=== PATIENT | female | born 1955 | race Caucasian/White ===

== ENCOUNTER → 2020-01-12 12:21 | Outpatient (CLI) | payer BC, SELFPAY ==
--- NOTE | ~2020-01-12 | DEXA_ITS ---
Bone Density Report Name: Estrella Carr Age: 64 Sex: Female Ethnicity: White Date of : 1955 Indication: postmenopausal; screening for osteoporosis; height loss; asthma or emphysema; Referring Provider: MYRNA DRAKE Study: Bone densitometry was performed. Exam Date: January 12, 2020 Accession number: [id number] Bone Density: Region BMD T-score Z-score Classification AP Spine (L1-L4) 0.944 -0.9 0.7 Normal Femoral Neck (Left) 0.605 -2.2 -0.8 Osteopenia Total Hip (Left) 0.844 -0.8 0.3 Normal Femoral Neck (Right) 0.655 -1.7 -0.3 Osteopenia Total Hip (Right) 0.836 -0.9 0.3 Normal Total Hip Mean 0.840 -0.9 0.3 Normal World Health Organization criteria for BMD impression classify patients as: Normal (T-score at or above -1.0), Osteopenia (T-score between -1.0 and -2.5), or Osteoporosis (T-score at or below -2.5). 10-year Fracture Risk(1): Major Osteoporotic Fracture 10% Hip Fracture 1.5% Reported Risk Factors: [place] (), Neck BMD=0.605, BMI=33.3 (1) FRAX(R) Version 3.08. Fracture probability calculated for an untreated patient. Fracture probability may be lower if the patient has received treatment. Clinical Information Provided by Patient: Has used the following medications: Vitamin D, Calcium, MTV, LEVOTHYROXIN Has the following medical conditions: Asthma or Emphysema Patient maximum height was 64 Menopause Age: 55 No regular weight bearing exercise Drinks caffeinated beverages Onset of menses at age 15 Number of children 2 Impression: The patient has low bone mass, based on the Left Femoral Neck T-score. The patient has an estimated ten-year risk of hip fracture of 1.5% and an estimated ten-year risk of major fracture of 10%, based on the WHO FRAX algorithm. Discussion: BONE DENSITY IS LOW AT ONE OR MORE SKELETAL SITES. This patient's lowest T-score is low at one or more skeletal sites. It meets the World Health Organization's (WHO) criteria for ?low bone mass? (T-score between -1.0 and -2.5). The patient's 10-year risk of fracture as calculated by FRAX is less than the threshold where pharmacological therapy is recommended by the National Osteoporosis Foundation (NOF). However, all treatment decisions require clinical judgment and consideration of individual patient factors, including patient preferences, comorbidities, previous drug use, risk factors not captured in the FRAX model (e.g., frailty, falls, vitamin D deficiency, increased bone turnover, interval significant decline in bone density) and possible under or overestimation of fracture risk by FRAX. The patient should follow a healthful lifestyle (good nutrition with adequate calcium and vitamin D, and appropriate weight-bearing exercise). Follow-Up: Consider repeating this study in 2 to 3 years to reasse
== END ==
PROVIDERS: PCP Internal Medicine; Visit Provider Obstetrics & Gynecology
DX: Z78.0 Asymptomatic menopausal state (principal); M85.89 Other specified disorders of bone density and structure, multiple sites
CPT/HCPCS: 77080

== ENCOUNTER 2020-12-17 15:30 | Outpatient (RCR) | payer BC, SELFPAY ==
--- NOTE | 2020-11-17 09:49 | PTOPEVAL ---
INITIAL PHYSICAL THERAPY EVALUATION and PLAN OF CARE Thank you for referring Estrella Carr to [facility].? Daksha is scheduled to be seen for physical therapy? 2x/week for 4 weeks. Please review, sign, date and return this plan of care MARY. I agree with and certify that the following plan of care is medically necessary. Referring Physician Date Admitting Provider: Attending Provider: Trav Leonard, MD Referring Provider: *PT Outpatient Evaluation Start: 11/17/20 08:29 Freq: Status: Active Protocol: Document 11/17/20 08:25 ANNIE (Rec: 11/17/20 09:46 ANNIE [id number]) Therapy Assessment Status Assessment Status Assessment Status Evaluation Outpatient Past Medical History Past Medical History Source of Past Medical History Patient Cardiovascular History Hx Hypertension Yes Respiratory History Hx Asthma Yes Hx Other Respiratory Disorders Yes: seasonal allergies Musculoskeletal History Hx Arthritis Yes Endocrine History Hx Hypothyroidism Yes HEENT History Hx Ear Surgery Yes: bilateral cochlear implants Evaluation Information Problem Diagnosis Pain R buttock/piriformis syndrome Onset exacerbation 10/2020 Subjective Information Estrella reports that ~ 10 yrs Query Text:As Reported By Patient/ ago was carrying tub/basket Family away from body - felt pull/ discomfort R SIJ/buttock region. Since then will reaggravate this area with certain body movements - usually when bending over, reaching away from midline. Latest episode was with heading cone sandhu and using weed eater. Was working out prior to COVID onset - did get treadmill - trying to stay active. [place] better with resistive hip adduction/ abduction machines. Takes Xantax and Zyrtec prior to sleep - so sleeps well. If hurting - will take a while to find comfortable position. Stiffness in mornings - improves with movement. Prior Level of Function Activity Level (Last 3 Months) Occupation mostly computer work now - will get up and move around Hand Dominance
--- NOTE | 2020-12-06 14:50 | PCPTNOTE ---
Patient called & cancelled scheduled appointment this date due to inability to leave work. Also cancelling 12/08/2020 appointment due to a .
--- NOTE | 2020-12-17 16:36 | PTOPEVAL ---
PHYSICAL THERAPY DISCHARGE SUMMARY Thank you for referring Estrella Carr to [facility].? Daksha has been seen x 6 visits. She has done well - goals have been met and she is independent with her HEP. She is ready for d/c from PT. I agree with Daksha's discharge from PT. Referring Physician Date Admitting Provider: Attending Provider: Daksha Pryor PA-C Referring Provider: Therapy Assessment Status Assessment Status Assessment Status Discharge Evaluation Information Problem Diagnosis Pain R buttock/piriformis syndrome Subjective Information Daksha reports not having the R Query Text:As Reported By Patient/ buttock pain upon waking up Family now - but does have some lumbar pain. Usually will have some soreness day after PT - then it goes away. Will have some discomfort the longer she walks. Doing well with work activities - but that is mainly sitting. Household activities - vacuuming can produce a little discomfort. Mowing is okay now, but will feel some discomfort with weed eating. Pain Assessment Timing of Pain Assessment Timing of Pain Assessment Assessment Pain Scale Pain Scale Used Numeric (1 - 10) Self Report Pain Assessment Lower Back Reported Pain Level 1 Lowest Pain Intensity 0 Greatest Pain Intensity 2 Cervical and Lumbar ROM Lumbar ROM Lumbar Flexion (0-90) 55 Query Text:Active in Degrees Lumbar Extension (0-40) 20 Query Text:Active in Degrees Lumbar Lateral Flexion Right (0-40) 15 Query Text:Active in Degrees Lumbar Lateral Flexion Left (0-40) 15 Query Text:Active in Degrees Lumbar Comments R sided lateral side tightness present with L side bending Muscle Length Testing Muscle Length Testing Muscle Length Testing Comments prone lying - symmetrical piriformis length Palpation Assessment Palpation Palpation P-A glides - to R sacral base, L5-2 some tenderness initially - mild decrease with mobility mid muscle belly R piriformis tenderness - no increase in tissue tension lumbar paraspinal tissue tension - no tenderness PT Clinical Summary Clinical Summary
== END 2021-02-04 10:12 | disposition home or self-care (01) ==
LOC: ANHHIPT 15:30
PROVIDERS: PCP Internal Medicine; Visit Provider Internal Medicine
DX: G57.00 Lesion of sciatic nerve, unspecified lower limb (principal); M79.18 Myalgia, other site
CPT/HCPCS: 97014; 97110; 97140; 97162; G0283

== ENCOUNTER 2022-02-22 00:26 | Day surgery (SDC) | payer MEDICARE, OTHER, SELFPAY ==
[2022-02-08 10:43] VITALS: BMI 32.5
--- NOTE | 2022-02-08 11:03 | PC.NURSE ---
Report to the Outpatient Waiting Room, entrance under the green pavilion located off [facility], at time __7:15AM on date ___02/22/22____. Planned Procedure Time: ___9:15AM . Time changes happen often and if your time is changed the preop area will call you the afternoon before. - You and your visitor will be asked to self-screen and do not enter if you have any COVID symptoms. - Only one visitor is requested with a max of two and NO children visitors are allowed at this time. - The patient visitor may be requested to leave or wait in car when not with patient due to distancing restrictions. - A mask is optional within the hospital. Patients may have clear liquids (water, carbonated beverages, clear teas, apple juice) until 3 hours prior to surgery with a maximum of 20 ounces. - No food from midnight until time of surgery. Take the following medications with a SIP of water the morning of surgery: __SYMBICORT, ALPRAZOLAM, AMLODIPINE, LEVOTHYROXINE, ALBUTEROL NEBULIZERS NEEDED,, FLONASE NEEDED Medications to discontinue per physician ____HOLD ALL VITAMINS/SUPPLEMENTS 3 DAYS PRE-OP Date to take last dose___02/18/22 Please no make-up, nail dominican, hairspray, perfume, deodorant, or body powder the day of surgery. No jewelry (including any body piercings) or valuables the day of surgery, leave them at home. Please take a shower or bath the night before, or the morning of, surgery with an antibacterial soap. Wear comfortable, loose fitting clothing. Children are encouraged to wear pajamas. - Jewelry must be removed prior to entering the operating room. Rings and piercings that are not removed may be cut off. - The hospital will not accept responsibility for valuables. - Please leave all valuables, including medications, at home the day of surgery. If you are going home after surgery, a licensed lunch truck driver must drive you home. - NO public transportation without another adult if you receive anesthesia. - We recommend that an adult stay with you for 24 hours following discharge. - We also recommend that you do not drive, make important decision, drink alcoholic beverages, or take any drugs that were not prescribed by your health care provider for at least 24 hours after your discharge time. Follow any additional instructions given to you from your surgeon. If you or anyone in your household have experienced Covid symptoms in the past week, please notify your surgeon or the nurse liaison at the phone number below for possible testing. Telephone instructions given to __PATIENT and asked if any additional questions and then verbalized understanding. Patient advised to call surgeon office or pre surgery nurse liaison [phone] if any additional questions.
--- NOTE | 2022-02-21 21:34 | PM.IMHP ---
H&P: HPI History of Present Illness Date/Time: 02/21/22 21:34 Chief Complaint: Abnormal ultrasound finding Narrative: Patient scheduled for D and C hysteroscopy and removal of lesion if present due to a finding of a thickened endometrial stripe of 2cm on an ultrasound that was done in January as a screening test prior to starting supplements. She denies vaginal bleeding. She had an office endometrial biopsy whidh was benign. She was recommended for direct visualization due to the thickness of the lining. Discussed possible etiologies to include scar tissue. Review of Systems Review of Systems: All systems reviewed & are unremarkable except as noted in HPI and below Constitutional: Constitutional: Reports no additional constitutional complaints Eyes: Eyes: Reports no additional eye complaints Cardiovascular: Cardiovascular: Reports no additional cardiovascular complaints Respiratory: Respiratory: Reports no additional respiratory complaints Gastrointestinal: Gastrointestinal: Reports no additional gastrointestinal complaints Genitourinary: Genitourinary: Reports no additional female genitourinary complaints and Reports as per HPI Integumentary/Breasts: Skin/Breast: Reports system reviewed and no additional complaints, except as docu Neurologic: Reports system reviewed and no additional complaints, except as documented Psychiatric: Psychiatric: Reports no additional psychiatric complaints Hematologic/Lymphatic: Hematologic/Lymphatic: Reports no additional hematologic/lymphatic complaints PMFSH Past Medical History Medical History [place] (actinic keratosis) Allergies Annual physical exam Anxiety Asthma Cochlear implant in place Encounter for screening for malignant neoplasm of rectum (07/19/15) Fatigue Hypertension Hypothyroidism Seasonal allergies Thyroid disorder Surgical History Surgical History History of dilatation and curettage Family History Family History Father Family history of mental disorder Hypertension Cerebrovascular accident Carcinoma of colon, Onset Age: 79 Patient's father is Mother Family history of malignant neoplasm of thyroid Family history of congestive heart failure Hypertension Social History Social History Smoking status: Never smoker Alcohol intake: never Substance use: never Substance use type: does not use Additional living arrangements comments: SPOUSE Gender identity (if verbalized by the patient): Female Sexual Orientation (if Verbalized by the Patient): Straight or Heterosexual Spiritual care concerns: No Meds Home Medications and Allergies Home Medications Medication Instructions Recorded Confirmed Type albuterol sulfate 5 mg/mL(0.5 %) 2.5 mg inhalation Q6H PRN Dyspnea 12/09/19 02/08/22 History solution for nebulization budesonide-formoterol HFA 80 2 puff inhalation BID 12/09/19 02/08/22 History mcg-4.5 mcg/actuation aerosol inhaler (Symbicort) montelukast 10 mg tablet 10 mg PO HS 12/09/19 02/08/22 History (Singulair) furosemide 20 mg tablet (Lasix) 20 mg PO QAM PRN edema #10 tabs 11/16/21 02/08/22 Rx cholecalciferol (vitamin D3) 50 50 mcg PO DAILY 11/24/21 02/08/22 History mcg (2,000 unit) capsule ipratropium 0.5 mg-albuterol 3 mg 3 ml inhalation Q6H PRN Dyspnea 11/24/21 02/08/22 History (2.5 mg base)/3 mL nebulization soln multivitamin 1 tablet PO DAILY 11/24/21 02/08/22 History amoxicillin 875 mg tablet 875 mg PO Q12H #20 tabs 01/31/22 02/08/22 Rx alprazolam 0.5 mg tablet,extended 0.5 mg PO BID #60 tabs 02/06/22 02/08/22 Rx release 24 hr albuterol sulfate 90 mcg/actuation 2 puff inhalation Q4-6H PRN Dyspnea 02/08/22 02/08/22 History aerosol inhaler amlodipine 5 mg
[2022-02-22 06:35] VITALS: BP 136/68; PULSE 77; RESP 16; TEMP 36.2; O2SAT 98
[2022-02-22] MEDS: ACETAMINOPHEN 500 MG TABLET 1000 MG PO (06:50)
[2022-02-22] MEDS: LACTATED RINGERS 1,000 ML 30 ML IV CONT (06:57)
--- NOTE | 2022-02-22 07:27 | WPDHPUPDATE1 ---
History and Physical Update Update Date/Time: 02/22/22 07:27 History and Physical has been reviewed, including an updated exam of the patient. There are NO changes in the patient's condition. Risks, benefits, and alternatives have been discussed and questions answered. Patient agrees to proceed with procedure.
--- NOTE | 2022-02-22 07:50 | WPDANESEPPF ---
Anes - Initial Pre Proc Eval Procedure: Operation Date: 02/22/22 08:30 Proposed Procedures p Hysteroscopy, Dilation and Curettage with Aveta, Possible Biopsy - Eyal Alberto MD Date/Time: 02/22/22 07:50 Surgeon: Eyal Alberto MD Pre Op Diagnosis: thickened endometrial stripe Patient Data Age: 66 Gender: F Height: 1.63 m Weight: 83.85 kg Last Vital Signs Temp 36.2 C L 02/22/22 06:35 Pulse 77 02/22/22 06:35 Resp 16 02/22/22 06:35 BP 136/68 02/22/22 06:35 Pulse Ox 98 02/22/22 06:35 O2 Del Method Room Air 02/22/22 06:35 Allergies Allergy/AdvReac Type Severity Reaction Status Date / Time cefdinir [From Omnicef] AdvReac Intermediate Diarrhea Verified 02/22/22 07:05 bupropion [From Wellbutrin] AdvReac Mild Fatigued Verified 02/22/22 07:05 buspirone [From BuSpar] AdvReac Mild Flushing Verified 02/22/22 07:05 escitalopram [From Lexapro] AdvReac Mild Fatigued Verified 02/22/22 07:05 Home Medications Medication Instructions Recorded Confirmed Type albuterol sulfate 5 mg/mL(0.5 %) 2.5 mg inhalation Q6H PRN Dyspnea 12/09/19 02/08/22 History solution for nebulization budesonide-formoterol HFA 80 2 puff inhalation BID 12/09/19 02/08/22 History mcg-4.5 mcg/actuation aerosol inhaler (Symbicort) montelukast 10 mg tablet 10 mg PO HS 12/09/19 02/08/22 History (Singulair) furosemide 20 mg tablet (Lasix) 20 mg PO QAM PRN edema #10 tabs 11/16/21 02/08/22 Rx cholecalciferol (vitamin D3) 50 50 mcg PO DAILY 11/24/21 02/08/22 History mcg (2,000 unit) capsule ipratropium 0.5 mg-albuterol 3 mg 3 ml inhalation Q6H PRN Dyspnea 11/24/21 02/08/22 History (2.5 mg base)/3 mL nebulization soln multivitamin 1 tablet PO DAILY 11/24/21 02/08/22 History amoxicillin 875 mg tablet 875 mg PO Q12H #20 tabs 01/31/22 02/08/22 Rx alprazolam 0.5 mg tablet,extended 0.5 mg PO BID #60 tabs 02/06/22 02/08/22 Rx release 24 hr albuterol sulfate 90 mcg/actuation 2 puff inhalation Q4-6H PRN Dyspnea 02/08/22 02/08/22 History aerosol inhaler amlodipine 5 mg tablet 5 mg PO QAM 02/08/22 02/08/22 History fluticasone propionate 50 2 spray intranasal BID PRN 02/08/22 02/08/22 History mcg/actuation nasal Congestion spray,suspension krill oil 500 mg capsule 1,000 mg PO DAILY 02/08/22 02/08/22 History levothyroxine 75 mcg tablet 75 mcg PO QAM 02/08/22 02/08/22 History losartan 100 mg tablet 100 mg PO QAM 02/08/22 02/08/22 History omega 6-pcr-qxf-fish oil 1,000 mg 1 cap PO DAILY 02/08/22 02/08/22 History (120 mg-180 mg) capsule (Fish Oil) Patient hx anesthesia problems: none Family hx anesthesia problems: none Results Review: All pre-operative results and documents have been reviewed as part of the pre-operative evaluation. [facility] Past Medical History Medical History [place] (actinic keratosis) Allergies Annual physical exam Anxiety Asthma Cochlear implant in place Encounter for screening for malignant neoplasm of rectum (07/19/15) Fatigue Hypertension Hypothyroidism Seasonal allergies Thyroid disorder Surgical History Surgical History History of dilatation and curettage Family History Family History Father Family history of mental disorder Hypertension Cerebrovascular accident Carcinoma of colon, Onset Age: 79 Patient's father is Mother Family history of malignant neoplasm of thyroid Family history of congestive heart failure Hypertension Social History Social History Smoking status: Never smoker Alcohol intake: never Substance use: never Substance use type: does not use Living arrangements: with family Additional living arrangements comments: SPOUSE Gender identity (if verbalized by the patient): Female Sexual Orientatio
[2022-02-22] MEDS: ceFAZolin 2 GM/D5W 50 ML 2 GM/50 ML BAG IVPB (08:20)
[2022-02-22] MEDS: LIDOCAINE HCL 1% PF 30 ML VIAL INFILTRATE (08:31)
[2022-02-22 08:46] VITALS: BP 113/70; PULSE 75; RESP 15; O2SAT 98
--- NOTE | 2022-02-22 09:10 | PM.OP ---
Procedure Note - Brief Procedure Note - Brief Date of procedure: 02/22/22 Pre-op diagnosis: thickened endometrial stripe Post-op diagnosis: Same Procedure performed: Diagnostic hysteroscopy and dilation and currettage Anesthesia: MAC and local Surgeon: Eyal Alberto MD Estimated blood loss (mL): 5 Drains: No Packing: No Pathology: Yes (scant endometrial currettings) Complications: No immediate complications Condition: Stable Disposition: Same day
[2022-02-22 09:15] VITALS: BP 128/64; PULSE 75; RESP 14
[2022-02-22 09:45] VITALS: BP 123/62; PULSE 77; RESP 14
--- NOTE | 2022-02-22 12:46 | W.PM.PROC2 ---
Procedure Note - Detailed Date of Procedure 02/22/22 Pre-op Diagnosis thickened endometrial stripe Post-op Diagnosis Same Procedure Performed Diagnostic hysteroscopy and dilation and currettage Surgeon Eyal Alberto MD Anesthesia MAC and Local Indications Abnormally thickened endometrial stripe on ultrasound Findings Uterus sound to 6cm, uterine cavity atrophic, no lesion, minimal tissue obtained on currettage Description of Procedure After informed consent was obtained she was taken to the operating room and adequate IV sedation was administered. She was placed in low lithotomy position and prepped and draped in sterile fashion. Attention was turned to the vagina speculum was inserted. Single-tooth tenaculum placed on the anterior lip of the cervix. 10 cc of 1% lidocaine plain was injected at the cervical vaginal interface. the cervix was dilated to an 6 hagen dilator. The uterus was sounded to 7 cm. The cervix was further hydro dilated with the of eat a hysteroscope instrument. The cavity was visualized there were no abnormalities noted the cavity was atrophic. The hysteroscope was removed a curettage was performed with minimal tissue as expected obtained. The tenaculum was removed hemostasis was noted . Speculum was removed. Patient tolerated procedure well. Sponge count correct. Estimated Blood Loss 5 Drains No Packing No Pathology Yes ( Scant endometrial curetting) Complications No immediate complications Condition Stable Disposition Same day [facility] Billing Surgery - Charge Forward: Surgery Billing
== END 2022-02-22 10:05 | disposition home or self-care (01) ==
PROVIDERS: PCP Family Medicine; Visit Provider Obstetrics & Gynecology
PROC: 0U5B8ZZ Destruction of Endometrium, Via Natural or Artificial Opening Endoscopic (ICD-10-PCS; CPT 58563; principal; 2022-02-22 08:30)
DX: N85.8 Other specified noninflammatory disorders of uterus (principal); J45.909 Unspecified asthma, uncomplicated; I10 Essential (primary) hypertension; E03.9 Hypothyroidism, unspecified; F41.9 Anxiety disorder, unspecified; E66.9 Obesity, unspecified; Z68.31 Body mass index [BMI] 31.0-31.9, adult; Z79.51 Long term (current) use of inhaled steroids
CPT/HCPCS: 58558; 88305; A9270; J0690; J2250; J2405; J2704; J3010; J7120

== ENCOUNTER 2022-05-01 00:27 | Day surgery (SDC) | payer MEDICARE, OTHER, SELFPAY ==
[2022-04-14 14:10] VITALS: BMI 29.5
[2022-05-01 06:54] VITALS: BP 146/72; PULSE 75; RESP 16; TEMP 36.3; O2SAT 99; BMI 30.9
[2022-05-01] MEDS: LACTATED RINGERS 1,000 ML 150 ML IV CONT (07:04)
--- NOTE | 2022-05-01 07:32 | WPDANESEPPF ---
Anes - Initial Pre Proc Eval Procedure: Operation Date: 05/01/22 08:30 Proposed Procedures p Screening Colonoscopy - Esdras Pina MD Date/Time: 05/01/22 07:32 Surgeon: Esdras Pina MD Pre Op Diagnosis: neoplasm screening Patient Data Age: 66 Gender: F Height: 1.63 m Weight: 81.8 kg Last Vital Signs Temp 97.3 F L 05/01/22 06:54 Pulse 75 05/01/22 06:54 Resp 16 05/01/22 06:54 BP 146/72 H 05/01/22 06:54 Pulse Ox 99 05/01/22 06:54 O2 Del Method Room Air 05/01/22 06:54 Allergies Allergy/AdvReac Type Severity Reaction Status Date / Time cefdinir [From Omnicef] AdvReac Intermediate Diarrhea Verified 05/01/22 06:53 Home Medications Medication Instructions Recorded Confirmed Type albuterol sulfate 5 mg/mL(0.5 %) 2.5 mg inhalation Q6H PRN Dyspnea 12/09/19 05/01/22 History solution for nebulization budesonide-formoterol HFA 80 2 puff inhalation BID 12/09/19 05/01/22 History mcg-4.5 mcg/actuation aerosol inhaler (Symbicort) furosemide 20 mg tablet (Lasix) 20 mg PO QAM PRN edema #10 tabs 11/16/21 05/01/22 Rx cholecalciferol (vitamin D3) 50 50 mcg PO DAILY 11/24/21 05/01/22 History mcg (2,000 unit) capsule ipratropium 0.5 mg-albuterol 3 mg 3 ml inhalation Q6H PRN Dyspnea 11/24/21 05/01/22 History (2.5 mg base)/3 mL nebulization soln multivitamin 1 tablet PO DAILY 11/24/21 05/01/22 History albuterol sulfate 90 mcg/actuation 2 puff inhalation Q4-6H PRN Dyspnea 02/08/22 05/01/22 History aerosol inhaler amlodipine 5 mg tablet 5 mg PO QAM 02/08/22 05/01/22 History fluticasone propionate 50 2 spray intranasal BID PRN 02/08/22 05/01/22 History mcg/actuation nasal Congestion spray,suspension krill oil 500 mg capsule 1,000 mg PO DAILY 02/08/22 05/01/22 History losartan 100 mg tablet 100 mg PO QAM 02/08/22 05/01/22 History alprazolam 0.5 mg tablet 0.5 mg PO QHS #30 tabs 03/08/22 05/01/22 Rx alprazolam 0.5 mg tablet,extended 0.5 mg PO BID #60 tabs 03/08/22 05/01/22 Rx release 24 hr montelukast 10 mg tablet 10 mg PO HS #90 tabs 03/08/22 05/01/22 Rx (Singulair) levothyroxine 75 mcg tablet See Rx Instructions .Route 03/09/22 05/01/22 Rx .COMPLEX #90 tabs Patient hx anesthesia problems: none Family hx anesthesia problems: none Results Review: All pre-operative results and documents have been reviewed as part of the pre-operative evaluation. [facility] Past Medical History Medical History [place] (actinic keratosis) Allergies Annual physical exam Anxiety Asthma Cochlear implant in place Encounter for screening for malignant neoplasm of rectum (07/19/15) Fatigue Hypertension Hypothyroidism Seasonal allergies Thyroid disorder Surgical History Surgical History History of dilatation and curettage Family History Family History Father Family history of mental disorder Hypertension Cerebrovascular accident Carcinoma of colon, Onset Age: 78 Patient's father is Mother Family history of malignant neoplasm of thyroid Family history of congestive heart failure Hypertension Social History Social History Smoking status: Never smoker Alcohol intake: never Substance use: never Substance use type: does not use Living arrangements: with family Additional living arrangements comments: SPOUSE Occupation/Education: occupation Gender identity (if verbalized by the patient): Female Sexual Orientation (if Verbalized by the Patient): Straight or Heterosexual Spiritual care concerns: No Anes - Eval Final PreProcedure Day of Procedure 05/01/22 07:32 Patient weight: normal Heart: regular rate and rhythm Lungs: clear to auscultation Airway: Mallampati scale class II Neurol
--- NOTE | 2022-05-01 07:57 | PM.HPGS ---
History of Present Illness History of Present Illness Consent: Risks, benefits, and alternatives have been discussed and questions answered. Patient agrees to proceed with procedure. Chief complaint: neoplasm screening Narrative: Estrella Carr is a 66 year old female here for screening colonoscopy, last one about 12 years ago Review of Systems Constitutional: Constitutional: Denies headache(s) and Denies weakness Eyes: Eyes: Denies blurry vision ENT: Reports Normal hearing present, Denies headache(s) and Denies neck pain Cardiovascular: Cardiovascular: Denies chest pain and Denies dyspnea Respiratory: Respiratory: Denies dyspnea Gastrointestinal: Gastrointestinal: Reports no additional gastrointestinal complaints Genitourinary: Genitourinary: Denies dysuria Musculoskeletal: Musculoskeletal: Denies neck pain Integumentary/Breasts: Skin/Breast: Denies dry skin Neurologic: Reports Normal hearing present, Denies headache(s) and Denies weakness Psychiatric: Psychiatric: Denies anxiety Endocrine: Endocrine: Denies change in body appearance Hematologic/Lymphatic: Hematologic/Lymphatic: Denies easy bleeding Allergic/Immunologic: Allergic/Immunologic: Denies urticaria PMFSH Past Medical History Medical History (Updated 05/01/22 @ 07:57 by Esdras Pina MD) AK (actinic keratosis) Allergies Annual physical exam Anxiety Asthma Cochlear implant in place Colon cancer screening Encounter for screening for malignant neoplasm of rectum (07/19/15) Fatigue Hypertension Hypothyroidism Seasonal allergies Thyroid disorder Surgical History Surgical History History of dilatation and curettage Family History Family History Father Family history of mental disorder Hypertension Cerebrovascular accident Carcinoma of colon, Onset Age: 79 Patient's father is Mother Family history of malignant neoplasm of thyroid Family history of congestive heart failure Hypertension Social History Social History Smoking status: Never smoker Alcohol intake: never Substance use: never Substance use type: does not use Living arrangements: with family Additional living arrangements comments: [facility] Occupation/Education: occupation Gender identity (if verbalized by the patient): Female Sexual Orientation (if Verbalized by the Patient): Straight or Heterosexual Spiritual care concerns: No Meds Home Medications and Allergies Home Medications Medication Instructions Recorded Confirmed Type albuterol sulfate 5 mg/mL(0.5 %) 2.5 mg inhalation Q6H PRN Dyspnea 12/09/19 05/01/22 History solution for nebulization budesonide-formoterol HFA 80 2 puff inhalation BID 12/09/19 05/01/22 History mcg-4.5 mcg/actuation aerosol inhaler (Symbicort) furosemide 20 mg tablet (Lasix) 20 mg PO QAM PRN edema #10 tabs 11/16/21 05/01/22 Rx cholecalciferol (vitamin D3) 50 50 mcg PO DAILY 11/24/21 05/01/22 History mcg (2,000 unit) capsule ipratropium 0.5 mg-albuterol 3 mg 3 ml inhalation Q6H PRN Dyspnea 11/24/21 05/01/22 History (2.5 mg base)/3 mL nebulization soln multivitamin 1 tablet PO DAILY 11/24/21 05/01/22 History albuterol sulfate 90 mcg/actuation 2 puff inhalation Q4-6H PRN Dyspnea 02/08/22 05/01/22 History aerosol inhaler amlodipine 5 mg tablet 5 mg PO QAM 02/08/22 05/01/22 History fluticasone propionate 50 2 spray intranasal BID PRN 02/08/22 05/01/22 History mcg/actuation nasal Congestion spray,suspension krill oil 500 mg capsule 1,000 mg PO DAILY 02/08/22 05/01/22 History losartan 100 mg tablet 100 mg PO QAM 02/08/22 05/01/22 History alprazolam 0.5 mg tablet 0.5 mg PO QHS #30 tabs 03/08/22 05/01/22 Rx alprazolam 0.5 mg tablet,extended 0.5 mg PO BID #60 tabs 03/08/22 05/01/22 Rx rel
[2022-05-01 08:15] VITALS: BP 129/59; PULSE 80; RESP 16; O2SAT 100
[2022-05-01 08:25] VITALS: BP 120/65; PULSE 60; RESP 20; O2SAT 99
[2022-05-01 08:35] VITALS: BP 142/78; PULSE 58; RESP 20; O2SAT 100
== END 2022-05-01 08:43 | disposition home or self-care (01) ==
PROVIDERS: PCP Family Medicine; Visit Provider Internal Medicine Gastroenterology
PROC: 0DJD8ZZ Inspection of Lower Intestinal Tract, Via Natural or Artificial Opening Endoscopic (ICD-10-PCS; CPT 45378; principal; 2022-05-01 08:30)
DX: Z12.11 Encounter for screening for malignant neoplasm of colon (principal); K57.30 Diverticulosis of large intestine without perforation or abscess without bleeding; K64.8 Other hemorrhoids; J45.909 Unspecified asthma, uncomplicated; F41.9 Anxiety disorder, unspecified; I10 Essential (primary) hypertension; E03.9 Hypothyroidism, unspecified; Z96.21 Cochlear implant status; Z79.51 Long term (current) use of inhaled steroids
CPT/HCPCS: G0121; J2704; J7120

== ENCOUNTER 2022-12-02 09:21 | Emergency (ER) | payer MEDICARE, OTHER, SELFPAY ==
--- NOTE | 2022-12-02 09:27 | ED.URI ---
HPI - URI/Sore Throat General Chief Complaint: Ear Stated Complaint: Earache Time Seen by Provider: 12/02/22 09:30 Source: patient, RN notes reviewed and old records reviewed Mode of arrival: ambulatory Limitations: no limitations History of Present Illness HPI Narrative: 67-year-old female presents to the [facility] with complaints of ear pain and increased sinus pressure. Patient states symptoms started this morning. Has been using inhaler due to her allergies and cough for the last couple of months. States that she does take Flonase and Zyrtec daily. No other treatment prior to arrival Has a history of asthma, allergy is thyroid, hypertension Onset (ago): day(s) (1) Related Data Home Medications Medication Instructions Recorded Confirmed albuterol sulfate 5 mg/mL(0.5 %) 2.5 mg inhalation Q6H PRN Dyspnea 12/09/19 12/02/22 solution for nebulization cholecalciferol (vitamin D3) 50 50 mcg PO DAILY 11/24/21 12/02/22 mcg (2,000 unit) capsule ipratropium 0.5 mg-albuterol 3 mg 3 ml inhalation Q6H PRN Dyspnea 11/24/21 12/02/22 (2.5 mg base)/3 mL nebulization soln multivitamin 1 tablet PO DAILY 11/24/21 12/02/22 albuterol sulfate 90 mcg/actuation 2 puff inhalation Q4-6H PRN Dyspnea 02/08/22 12/02/22 aerosol inhaler fluticasone propionate 50 2 spray intranasal BID PRN 02/08/22 12/02/22 mcg/actuation nasal Congestion spray,suspension krill oil 500 mg capsule 1,000 mg PO DAILY 02/08/22 12/02/22 cyanocobalamin (vitamin B-12) 2,000 mcg PO DAILY 11/01/22 12/02/22 2,000 mcg tablet progesterone micronized 100 mg 100 mg PO QHS 11/14/22 12/02/22 capsule budesonide-formoterol HFA 80 inhalation 12/02/22 12/02/22 mcg-4.5 mcg/actuation aerosol inhaler Allergies Allergy/AdvReac Type Severity Reaction Status Date / Time cefdinir [From Omnicef] AdvReac Intermediate Diarrhea Verified 12/02/22 09:27 Review of Systems Review of Systems: All systems reviewed & are unremarkable except as noted in HPI and below Constitutional: Constitutional: Reports no additional constitutional complaints Eyes: Eyes: Reports no additional eye complaints ENT: Reports as per HPI and Reports otalgia Cardiovascular: Cardiovascular: Reports no additional cardiovascular complaints, Denies chest pain and Denies dyspnea Respiratory: Respiratory: Reports no additional respiratory complaints, Denies chest congestion, Denies cough and Denies dyspnea Gastrointestinal: Gastrointestinal: Reports no additional gastrointestinal complaints, Denies abdominal pain, Denies nausea and Denies vomiting Musculoskeletal: Musculoskeletal: Reports no additional musculoskeletal complaints Integumentary/Breasts: Skin/Breast: Reports system reviewed and no additional complaints, except as docu Neurologic: Reports system reviewed and no additional complaints, except as documented Psychiatric: Psychiatric: Reports no additional psychiatric complaints Allergic/Immunologic: Allergic/Immunologic: Reports no additional allergic/immunologic complaints PMFSH Past Medical History Medical History AK (actinic keratosis) Allergies Annual physical exam Anxiety Asthma Cochlear implant in place Colon cancer screening Encounter for screening for malignant neoplasm of rectum (07/19/15) Fatigue Hypertension Hypothyroidism Seasonal allergies Thyroid disorder Surgical History Surgical History History of dilatation and curettage Family History Family History Father Family history of mental disorder Hypertension Cerebrovascular accident Carcinoma of colon, Onset Age: 79 Patient's father is Mother Family history of malignant neoplasm of thyroid Family history of congestive heart failure Hypertension Social History Social History (Reviewed 12/02/22 @ 18:21 by Chava
[2022-12-02 09:29] VITALS: BP 111/52; PULSE 92; RESP 16; TEMP 37.2; O2SAT 100
[2022-12-02 09:40] VITALS: BP 111/52; PULSE 92; RESP 16; TEMP 37.2; O2SAT 100
== END 2022-12-02 10:09 | disposition home or self-care (01) ==
PROVIDERS: Emergency Provider Nurse Practitioner; PCP Physician Assistant Medical
DX: H92.01 Otalgia, right ear (principal); I10 Essential (primary) hypertension; E03.9 Hypothyroidism, unspecified; J45.909 Unspecified asthma, uncomplicated; Z20.822 Contact with and (suspected) exposure to COVID-19
CPT/HCPCS: 87426; 99213; C9803; G0463

== ENCOUNTER 2024-10-30 02:24 | Day surgery (SDC) | payer MEDICARE, OTHER, SELFPAY ==
[2024-10-23 15:47] VITALS: BMI 25.7
--- NOTE | 2024-10-23 16:06 | PC.NURSE ---
Report to the Outpatient Waiting Room, entrance under the green pavilion located off [facility], at time __7:30AM__ on date __10/30/24__. Planned Procedure Time: __9:30AM_ Time changes happen often and if your time is changed the preop area will call you the afternoon before. - You and your visitor will be asked to self-screen and do not enter if you have any COVID symptoms. Please call surgeon if you need to reschedule. - A mask is optional within the hospital at this time. Patients may have clear liquids (water, carbonated beverages, clear teas, apple juice) until 3 hours prior to surgery (6:30AM) with a maximum of 20 ounces. - No food from midnight until time of surgery and no smoking, or chewing tobacco (or any form of nicotine). No chewing gum, candy or mints. Take only the following medications with a SIP of water on the morning of surgery: ____AMLODIPINE, LEVOTHYROXINE. MAY USE ALBUTEROL INHALER OR NEBULIZER NEEDED DO NOT STOP ANY OF YOUR OTHER PRESCRIPTION MEDICATIONS PRIOR TO SURGERY EXCEPT THE FOLLOWING Hold all vitamins and supplements for 3 days per anesthesiologist.-LAST DOSE 10/26/24 Medications to discontinue per physician NONE Date to take last dose Please no make-up, nail japanese, hairspray, perfume, deodorant, or body powder the day of surgery.? No jewelry (including any body piercings) or valuables the day of surgery, leave them at home.? Please take a shower or bath the night before, or the morning of, surgery with an antibacterial soap.? Wear comfortable, loose fitting clothing.? - Jewelry must be removed prior to entering the operating room.? Rings and piercings that are not removed may be cut off. - The hospital will not accept responsibility for valuables.? - Please leave all valuables, including medications, at home the day of surgery. If you are going home after surgery, a licensed class b driver must drive you home.? - NO public transportation without another adult if you receive anesthesia. - We recommend that an adult stay with you for 24 hours following discharge. - We also recommend that you do not drive, make important decision, drink alcoholic beverages, or take any drugs that were not prescribed by your health care provider for at least 24 hours after your discharge time. Follow any additional instructions given to you from your surgeon. Telephone instructions given to ____PATIENT and asked if any additional questions and then verbalized understanding. Patient advised to call surgeon office or pre surgery nurse liaison [phone] if any additional questions.
--- NOTE | 2024-10-28 12:53 | PM.IMHP ---
H&P: HPI History of Present Illness Date/Time: 10/28/24 12:53 Chief Complaint: Postmenopausal bleeding Narrative: 69-year-old female hormone replacement admitted for hysteroscopy dilatation curettage secondary to thickened endometrial tissue. At complex area within the cervix. Risks and benefits of hysteroscopy dilatation curettage reviewed including not exclusive of , aspiration pneumonia, bleeding, transfusion, perforation injury to bowel, bladder, ureters, or other internal organs with need for open laparotomy. She received the ACOG handout entitled hysteroscopy as well as dilatation curettage. She had all questions answered. She asked to proceed Review of Systems Review of Systems: All systems reviewed & are unremarkable except as noted in HPI and below Constitutional: Constitutional: Reports no additional constitutional complaints Eyes: Eyes: Reports no additional eye complaints ENT: Reports as per HPI and Reports otalgia Cardiovascular: Cardiovascular: Reports no additional cardiovascular complaints, Denies chest pain and Denies dyspnea Respiratory: Respiratory: Reports no additional respiratory complaints, Denies chest congestion, Denies cough and Denies dyspnea Gastrointestinal: Gastrointestinal: Reports no additional gastrointestinal complaints, Denies abdominal pain, Denies nausea and Denies vomiting Musculoskeletal: Musculoskeletal: Reports no additional musculoskeletal complaints Integumentary/Breasts: Skin/Breast: Reports system reviewed and no additional complaints, except as docu Neurologic: Reports system reviewed and no additional complaints, except as documented Psychiatric: Psychiatric: Reports no additional psychiatric complaints Allergic/Immunologic: Allergic/Immunologic: Reports no additional allergic/immunologic complaints [facility] Past Medical History Medical History Abnormal finding on ultrasound Hormone replacement therapy Hyperlipidemia Colon cancer screening Thyroid disorder Asthma Allergies Fatigue Annual physical exam Encounter for screening for malignant neoplasm of rectum (07/19/15) AK (actinic keratosis) Hypothyroidism Cochlear implant in place Anxiety Seasonal allergies Hypertension Surgical History Surgical History History of dilatation and curettage Family History Family History Father , PTSD after fighting in WWII Hypertension Cerebrovascular accident Carcinoma of colon, Onset Age: 79 Patient's father is PTSD (post-traumatic stress disorder) Mother Family history of congestive heart failure Hypertension Hypothyroidism Social History Social History Social History: 12/18/23 Patient declined SDOH Smoking status: Never smoker Alcohol intake: never Substance use: never Substance use type: does not use Living arrangements: with family Additional living arrangements comments: [facility] Occupation/Education: occupation Gender identity (if verbalized by the patient): Female Sexual Orientation (if Verbalized by the Patient): Straight or Heterosexual Spiritual care concerns: No Meds Home Medications and Allergies Home Medications ?Medication ?Instructions ?Recorded ?Confirmed ?Type albuterol sulfate 5 mg/mL(0.5 %) 2.5 mg inhalation Q6H PRN Dyspnea 12/09/19 10/23/24 History solution for nebulization cholecalciferol (vitamin D3) 50 50 mcg PO DAILY 11/24/21 10/23/24 History mcg (2,000 unit) capsule multivitamin 1 tablet PO DAILY 11/24/21 10/23/24 History albuterol sulfate 90 mcg/actuation 2 puff inhalation Q4-6H PRN Dyspnea 02/08/22 10/23/24 History aerosol inhaler fluticasone propionate 50 2 spray intranasal BID PRN 02/08/22 10/23/24 History mcg/actuation nasal Congestion spray,suspension calcium 600 mg (as carbonate)-vit 1 tablet PO .qd #30 tabs 05/17/23 10/23/24 Rx D3 1,000 unit-vitamin K2 90 mcg tab red yeast rice 1 cap PO DAILY 12/18/23 10/23/24 History testosterone 100 mg implant pellet 175 mg subcut ONCE 08/26/24 10/23/24 History cyanocobalamin (vitamin B-12) 1,000 mcg PO DAILY 09/04/24 10/23/24 History 1,000 mcg tablet amlodipine 5 mg tablet 5 mg PO DAILY #90 tabs 10/13/24 10/23/24 Rx levothyroxine 75 mcg tablet 75 mcg PO DAILY #90 tabs 10/13/24 10/23/24 Rx alprazolam 0.25 mg tablet 0.125 mg PO QHS 10/23/24 10/23/24 History progesterone micronized 100 mg 100 mg PO HS 10/23/24 10/23/24 History capsule red yeast rice 600 mg capsule 600 mg PO BID 10/23/24 10/23/24 History spironolactone 100 mg tablet 100 mg PO HS 10/23/24 10/23/24 History Allergies Allergy/AdvReac Type Severity Reaction Status Date / Time cefdinir (From Omnicef) AdvReac Intermediate Diarrhea Verified 10/23/24 15:39 Exam Const: General: cooperative, healthy appearing and comfortable Nutritional Appearance: average body habitus Orientation/consciousness: oriented to person, oriented to place and oriented to time Resp: Effort & Inspection: normal respiratory effort Cardio: Rate: regular rate Rhythm: regular rhythm Heart sounds: S1 normal heart sound present and S2 normal heart sound present GI: Inspection: normal to inspection : External Female Exam: normal external appearance Speculum Exam - Vagina: normal appearance of the vagina Speculum Exam - Cervix: normal appearance of the cervix Bimanual exam- vagina & uterus: non-tender Bimanual Exam- Adnexa, other: normal adnexae Assessment and Plan Assessment and plan (1) Postmenopausal bleeding: Code(s): N95.0 - Postmenopausal bleeding Status: Acute Plan Proceed with hysteroscopy/dilatation curettage
--- NOTE | 2024-10-30 07:36 | WPDHPUPDATE1 ---
History and Physical Update Update Date/Time: 10/30/24 07:36 History and Physical has been reviewed, including an updated exam of the patient. There are NO changes in the patient's condition. Risks, benefits, and alternatives have been discussed and questions answered. Patient agrees to proceed with procedure.
[2024-10-30 08:00] VITALS: BP 120/63; PULSE 70; RESP 16; TEMP 36.4; O2SAT 100
[2024-10-30] MEDS: ACETAMINOPHEN 500 MG TABLET 1000 MG PO (08:00)
--- NOTE | 2024-10-30 08:27 | WPDANESEPPF ---
Anes - Initial Pre Proc Eval Procedure: Operation Date: 10/30/24 09:30 Proposed Procedures p Hysteroscopy Dilation and Curettage - Zoltan Ann MD Date/Time: 10/30/24 08:27 Surgeon: Zoltan Ann MD Pre Op Diagnosis: thickened endometrium, complex cervix Patient Data Age: 69 Gender: F Height: 1.63 m Weight: 71.5 kg Last Vital Signs Temp 36.4 C 10/30/24 08:00 Pulse 70 10/30/24 08:00 Resp 16 10/30/24 08:00 BP 120/63 10/30/24 08:00 Pulse Ox 100 10/30/24 08:00 O2 Del Method Room Air 10/30/24 08:00 Allergies Allergy/AdvReac Type Severity Reaction Status Date / Time cefdinir (From Omnicef) AdvReac Intermediate Diarrhea Verified 10/30/24 08:12 Home Medications ?Medication ?Instructions ?Recorded ?Confirmed ?Type albuterol sulfate 5 mg/mL(0.5 %) 2.5 mg inhalation Q6H PRN Dyspnea 12/09/19 10/23/24 History solution for nebulization cholecalciferol (vitamin D3) 50 50 mcg PO DAILY 11/24/21 10/30/24 History mcg (2,000 unit) capsule multivitamin 1 tablet PO DAILY 11/24/21 10/30/24 History albuterol sulfate 90 mcg/actuation 2 puff inhalation Q4-6H PRN Dyspnea 02/08/22 10/23/24 History aerosol inhaler fluticasone propionate 50 2 spray intranasal BID PRN 02/08/22 10/23/24 History mcg/actuation nasal Congestion spray,suspension calcium 600 mg (as carbonate)-vit 1 tablet PO .qd #30 tabs 05/17/23 10/30/24 Rx D3 1,000 unit-vitamin K2 90 mcg tab red yeast rice 1 cap PO DAILY 12/18/23 10/23/24 History testosterone 100 mg implant pellet 175 mg subcut ONCE 08/26/24 10/23/24 History cyanocobalamin (vitamin B-12) 1,000 mcg PO DAILY 09/04/24 10/30/24 History 1,000 mcg tablet amlodipine 5 mg tablet 5 mg PO DAILY #90 tabs 08/11/25 08/28/25 Rx levothyroxine 75 mcg tablet 75 mcg PO DAILY #90 tabs 10/13/24 10/30/24 Rx alprazolam 0.25 mg tablet 0.125 mg PO QHS 10/23/24 10/23/24 History progesterone micronized 100 mg 100 mg PO HS 10/23/24 10/23/24 History capsule red yeast rice 600 mg capsule 600 mg PO BID 10/23/24 10/30/24 History spironolactone 100 mg tablet 100 mg PO HS 10/23/24 10/30/24 History hydrocodone 5 mg-acetaminophen 325 1 tablet PO Q4H PRN pain #20 tabs 10/30/24 Rx mg tablet Patient hx anesthesia problems: none Family hx anesthesia problems: none Results Review: All pre-operative results and documents have been reviewed as part of the pre-operative evaluation. [facility] Past Medical History Medical History Abnormal finding on ultrasound Hormone replacement therapy Hyperlipidemia Colon cancer screening Thyroid disorder Asthma Allergies Fatigue Annual physical exam Encounter for screening for malignant neoplasm of rectum (07/19/15) AK (actinic keratosis) Hypothyroidism Cochlear implant in place Anxiety Seasonal allergies Hypertension Surgical History Surgical History History of dilatation and curettage Family History Family History Father , PTSD after fighting in WW[place] Hypertension Cerebrovascular accident Carcinoma of colon, Onset Age: 79 Patient's father is PTSD (post-traumatic stress disorder) Mother Family history of congestive heart failure Hypertension Hypothyroidism Social History Social History Social History: 12/18/23 Patient declined SDVA Smoking status: Never smoker Alcohol intake: never Substance use: never Substance use type: does not use Living arrangements: with family Additional living arrangements comments: [facility] Occupation/Education: occupation Gender identity (if verbalized by the patient): Female Sexual Orientation (if Verbalized by the Patient): Straight or Heterosexual Spiritual care concerns: No Anes - Eval Final PreProcedure Day of Procedure 10/30/24 08:27 Patient weight: overweight Heart: regular rate and rhythm Lungs: clear to auscultation Airway: Mallampati scale class II Neurological: alert and oriented Last oral intake: >/= 8 hours ASA classification: III Emergent: no Anesthetic plan: proceed Anesthesia type and monitoring: general GIVS and standard monitoring Results Review: All pre-operative results and documents have been reviewed as part of the pre-operative evaluation. Informed Consent: The patient's anesthetic plan and its attendant risks and benefits were discussed with the patient/family/POA. Questions were solicited and answers provided to the satisfaction of the patient/family/POA.
[2024-10-30] MEDS: LIDOCAINE 1% LOCAL INJ 10 ML VIAL INFILTRATE (09:10)
--- NOTE | 2024-10-30 09:12 | S_PTH ---
PATIENT: Estrella Carr LOC: [facility] U#:[id number] AGE/SX: 69/F ROOM: RE10/30/[address]: Zoltan Ann MD : 1955 BED: DIS: 10/30/2024 SPEC #: [id number] RECD: 10/30/24 10:16 STATUS: HECTOR REQ #: [id number] SHERYL: 10/30/24 09:[address]: Zoltan Tan DEPT: [facility] Surgical RECD BY: Tenisha Nguyen ENTERED: 10/30/24 10:17 SP TYPE: Surgical OTHR DR: Lynne Pryor PA-C Tissues: A - Endometrial Curettings Procedures: Hematoxylin and Eosin Stain Gross and Microscopic Level 4
--- NOTE | 2024-10-30 09:17 | P.OP_ITS ---
Procedure Note - Detailed Date of Procedure 10/30/24 Pre-op Diagnosis thickened endometrium, complex cervix Post-op Diagnosis Same Procedure Performed Hysteroscopy/dilatation curettage Surgeon Zoltan Ann MD Anesthesia MAC and Local Indications This is a 61-year-old female with questionable thickened endometrium on hormone replacement Findings Very benign appearing endometrium Description of Procedure The patient was prepped draped in the normal sterile fashion placed in the dorsal lithotomy position. Under excellent IV sedation weighted speculum placed in posterior fornix vagina. Anterior lip of the cervix grasped with a single- tooth tenaculum. 2.5cc 1% xylocaine anesthesia placed at 2, 4, 8, 10:00 a.m. of the cervix. Uterus sounded to 7cm. Serial dilatation fragmented dilators performed followed by passage of the 5mm visualizing hysteroscope. Normal saline was used as visualizing medium. Very benign atrophic appearing endometrium was seen. The instrument was withdrawn the uterus was scraped over the entire 360? removing very little to no tissue. The instruments withdrawn. Blood loss estimated at5cc. All sponge, needle, instrument counts were correct. There were no immediate complications Estimated Blood Loss 5 Drains No Packing No Pathology Yes Complications No immediate complications Condition Stable Disposition PACU
[2024-10-30 09:20] VITALS: BP 109/55; PULSE 69; RESP 14; O2SAT 98
[2024-10-30] MEDS: LACTATED RINGERS 1,000 ML 30 ML IV CONT (09:20)
[2024-10-30 09:45] VITALS: BP 115/61; PULSE 66
[2024-10-30] MEDS: oxyCODONE HCL (*CRX) 5 MG TAB IR PO (09:45)
[2024-10-30 10:00] VITALS: BP 112/59; PULSE 60
== END 2024-10-30 10:10 | disposition home or self-care (01) ==
PROVIDERS: PCP Physician Assistant Medical; Visit Provider Obstetrics & Gynecology
PROC: 0U5B8ZZ Destruction of Endometrium, Via Natural or Artificial Opening Endoscopic (ICD-10-PCS; CPT 58563; principal; 2024-10-30 09:30)
DX: N85.8 Other specified noninflammatory disorders of uterus (principal); E78.5 Hyperlipidemia, unspecified; E03.9 Hypothyroidism, unspecified; I10 Essential (primary) hypertension; J45.909 Unspecified asthma, uncomplicated; R53.83 Other fatigue; L57.0 Actinic keratosis; F41.9 Anxiety disorder, unspecified; Z96.21 Cochlear implant status; Z79.51 Long term (current) use of inhaled steroids; Z79.891 Long term (current) use of opiate analgesic; Z79.890 Hormone replacement therapy; Z98.890 Other specified postprocedural states; Z80.0 Family history of malignant neoplasm of digestive organs; Z82.49 Family history of ischemic heart disease and other diseases of the circulatory system
CPT/HCPCS: 58558; 88305; A9270; J1100; J2003; J2250; J2405; J2704; J3010; J7120